=== PATIENT | female | born 1995 | race Caucasian/White ===

== ENCOUNTER 2017-01-15 23:57 | Emergency (ER) | payer SELFPAY ==
[2017-01-16] MEDS ORDERED: Bacitracin Oint 1 GM U/D Packet TOP ONE (00:05)
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
[2017-01-16 00:31] VITALS: BP 138/79
== END 2017-01-16 00:30 | disposition home or self-care (01) ==
LOC: MW.ED 23:57
DX: T24.102A Burn of first degree of unspecified site of left lower limb, except ankle and foot, initial encounter (principal); T24.101A Burn of first degree of unspecified site of right lower limb, except ankle and foot, initial encounter; F17.210 Nicotine dependence, cigarettes, uncomplicated; Z88.8 Allergy status to other drugs, medicaments and biological substances; Z88.7 Allergy status to serum and vaccine; X08.8XXA Exposure to other specified smoke, fire and flames, initial encounter
CPT/HCPCS: 99283

== ENCOUNTER 2017-04-06 23:10 | Emergency (ER) | payer BC, MEDICAID ==
[2017-04-06] MEDS ORDERED: Acetaminophen/Butalbital/Caffeine 325-50-40 MG Tab PO ONE (23:36)
--- NOTE | 2017-04-06 23:40 | EDM.PDOC ---
ED HPI GENERAL MEDICAL PROBLEM - General Chief Complaint: Neck Problem Stated Complaint: PT HAS BACK PAINS Time Seen by Provider: 04/06/17 23:37 Source of Information: Reports: Patient - History of Present Illness INITIAL COMMENTS - FREE TEXT/NARRATIVE: HISTORY AND PHYSICAL: History of present illness: []Patient presents with history of headache over the last couple of days as well as pain with head movement on the horizontal axis left and right, she states she is under a lot of stress at work at [employer] and desires to stop this employment. She has 4 out of 10 occipital headache nonradiating She denies any injury, on physical exam she has clear spasm I can reproduce symptoms in both left and right trapezius distribution she denies any head injury whiplash type injury no fever nausea vomiting chills sweats no chest pain shortness breath dizziness or palpitation no bowel or urine symptoms Review of systems: As per history of present illness and below otherwise all systems reviewed and negative. Past medical history: As per history of present illness and as reviewed below otherwise noncontributory. Surgical history: As per history of present illness and as reviewed below otherwise noncontributory. Social history: No reported history of drug or alcohol abuse. Family history: As per history of present illness and as reviewed below otherwise noncontributory. Physical exam: HEENT: Atraumatic, normocephalic, pupils reactive, negative for conjunctival pallor or scleral icterus, mucous membranes moist, throat clear, neck supple, nontender, trachea midline. No meningeal sign Lungs: Clear to auscultation, breath sounds equal bilaterally, chest nontender. Heart: S1S2, regular, negative for clicks, rubs, or JVD. Abdomen: Soft, nondistended, nontender. Negative for masses or hepatosplenomegaly. Negative for costovertebral tenderness. Pelvis: Stable nontender. Genitourinary: Deferred. Rectal: Deferred. Extremities: Atraumatic, negative for cords or calf pain. Neurovascular unremarkable. Neuro: Awake, alert, oriented. Cranial nerves II through XII unremarkable. Cerebellum unremarkable. Motor and sensory unremarkable throughout. Exam nonfocal. Musculoskeletal again I can reproduce symptoms with palpation of right and left trapezius distribution no meningeal signs Diagnostics: []Clinical Therapeutics: []Fioricet 1 tab now Fioricet 1-2 tabs by mouth every 6 hours when necessary #30 no refill Impression: []Tension headache Muscle spasm right and left trapezius distribution Definitive disposition and diagnosis as appropriate pending reevaluation and review of above. neck Pain Score (Numeric/FACES): 8 - Related Data Allergies Allergy/AdvReac Type Severity Reaction Status Date / Time Influenza Virus Vaccines Allergy Cannot Verified 04/06/17 23:25 Remember trazodone Allergy Cardiac Verified 04/06/17 23:25 Arrest Home Meds: Home Meds Albuterol [Ventolin HFA] 2 puff INH Q4H PRN 04/29/15 [History] Past Medical History - Past Health History Medical/Surgical History: Denies Medical/Surgical History Cardiovascular History: Reports: Other (See Below) Other Cardiovascular History: patient had cardiac arrest from trazodone; heart murmur Respiratory History: Reports: Asthma PERSONNEL MONITOR History: Reports: - Infectious Disease History Infectious Disease History: Reports: None Social & Family History - Family History Family Medical History: Noncontributory - Tobacco Use Smoking Status *Q: Current Every Day Smoker Years of Tobacco use: 5 Packs/Tins Daily: 1 Used Tobacco, but Quit: No Month Tobacco Last Used: February 2014 Second Hand Smoke Exposure: Yes - Alcohol Use Days Per Week of Alcohol Use: 1 Number of Drinks Per Day: 1 Total Drinks Per Week: 1 - Recreational Drug Use Recreational Drug Use: No ED ROS GENERAL - Review of Systems Review Of Systems: ROS reveals no pertinent complaints other than HPI. ED EXAM, GENERAL - Physical Exam Exam: See Below Course - Vital Signs Last Recorded V/S: Last Vital Signs Temp 36.3 C 04/06/17 23:10 Pulse 69 04/06/17 23:10 Resp 18 04/06/17 23:10 BP 131/75 04/06/17 23:10 Pulse Ox 99 04/06/17 23:10 - Orders/Labs/Meds Orders: Active Orders 24 hr Category Date Time Status Acetaminophen/Butalbital/Caff [Fioricet 325-50-40 MG] Med 04/06/17 23:36 Once 1 tab PO ONETIME ONE Departure - Departure Time of Disposition: 23:39 Disposition: Home, Self-Care 01 Condition: Good Clinical Impression: Muscle spasm, Tension headache - Discharge Information Referrals: PCP,None [Primary Care Provider] - Additional Instructions: Medication as prescribed Return if symptoms persist or worsen Follow-up with primary care in 2 weeks sooner as needed The following information is given to patients seen in the emergency department who are being discharged to home. This information is to outline your options for follow-up care. We provide all patients seen in our emergency department with a follow-up referral. The need for follow-up, as well as the timing and circumstances, are variable depending upon the specifics of your emergency department visit. If you don't have a primary care physician on staff, we will provide you with a referral. We always advise you to contact your personal physician following an emergency department visit to inform them of the circumstance of the visit and for follow-up with them and/or the need for any referrals to a consulting specialist. The emergency department will also refer you to a specialist when appropriate. This referral assures that you have the opportunity for follow-up care with a specialist. All of these measure are taken in an effort to provide you with optimal care, which includes your follow-up. Under all circumstances we always encourage you to contact your private physician who remains a resource for coordinating your care. When calling for follow-up care, please make the office aware that this follow-up is from your recent emergency room visit. If for any reason you are refused follow-up, please contact the [facility] emergency department at and asked to speak to the emergency department charge nurse. - My Orders Last 24 Hours: My Active Orders 04/06/17 23:36 Acetaminophen/Butalbital/Caff [Fioricet 325-50-40 MG] 1 tab PO ONETIME ONE - Assessment/Plan Last 24 Hours: My Active Orders 04/06/17 23:36 Acetaminophen/Butalbital/Caff [Fioricet 325-50-40 MG] 1 tab PO ONETIME ONE
[2017-04-07 00:25] VITALS: BP 129/80
== END 2017-04-07 00:10 | disposition home or self-care (01) ==
LOC: MW.ED 23:10
DX: G44.209 Tension-type headache, unspecified, not intractable (principal); M62.838 Other muscle spasm; F17.210 Nicotine dependence, cigarettes, uncomplicated; Z88.8 Allergy status to other drugs, medicaments and biological substances
CPT/HCPCS: 99283; A9270; 99282

== ENCOUNTER 2018-01-05 21:11 | Emergency (ER) | payer OTHER, BC ==
[2018-01-05 22:12] VITALS: BP 131/80
[2018-01-05] MEDS ORDERED: traMADol 50 MG Tab PO ONE (22:38)
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
== END 2018-01-06 00:24 | disposition home or self-care (01) ==
LOC: MW.ED 21:11 → MERGE 21:11 → MW.ED 01-06 00:24
DX: S80.02XA Contusion of left knee, initial encounter (principal); S60.212A Contusion of left wrist, initial encounter; S00.83XA Contusion of other part of head, initial encounter; W19.XXXA Unspecified fall, initial encounter; F17.210 Nicotine dependence, cigarettes, uncomplicated; Z79.899 Other long term (current) drug therapy
CPT/HCPCS: 73562; 99283; A9270

== ENCOUNTER 2018-09-19 18:57 | Emergency (ER) | payer BC, OTHER ==
--- NOTE | 2018-09-19 19:06 | EDM.PDOC ---
ED HPI GENERAL MEDICAL PROBLEM - General Chief Complaint: Upper Extremity Injury/Pain Stated Complaint: LEFT WRIST PAIN Time Seen by Provider: 09/19/18 19:04 Source of Information: Reports: Patient History Limitations: Reports: No Limitations - History of Present Illness INITIAL COMMENTS - FREE TEXT/NARRATIVE: HISTORY AND PHYSICAL: History of present illness: Patient is a 23-year-old female who presents to the emergency room today with complaints of left wrist pain. She states she until today. Today she was at work all day and very busy; left wrist became painful. Pain is increased with grasping and flexion/extension of the wrist. She denies any previous injury/ surgery of the affected extremity. Denies any numbness or tingling of the affected extremity. She denies any fever, chills, chest pain, shortness of breath or cough. Denies any abdominal pain, nausea, vomiting, diarrhea or constipation. She has been eating and drinking appropriately. Other than the localized area of pain to the left wrist has no other complaints or concerns today. Review of systems: As per history of present illness and below otherwise all systems reviewed and negative. Past medical history: As per history of present illness and as reviewed below otherwise noncontributory. Surgical history: As per history of present illness and as reviewed below otherwise noncontributory. Social history: See social history for further information Family history: As per history of present illness and as reviewed below otherwise noncontributory. Physical exam: General: Well-developed and well-nourished 23-year-old female. Alert and oriented. Nontoxic appearing and in no acute distress. HEENT: Atraumatic, normocephalic, pupils equal and reactive bilaterally, negative for conjunctival pallor or scleral icterus, mucous membranes moist, TMs normal bilaterally, throat clear, neck supple, nontender, trachea midline. No drooling or trismus noted. No meningeal signs. No hot potato voice noted. Lungs: Clear to auscultation, breath sounds equal bilaterally, chest nontender. Heart: S1S2, regular rate and rhythm without overt murmur Abdomen: Soft, nondistended, nontender. Negative for masses or hepatosplenomegaly. Negative for costovertebral tenderness. Pelvis: Stable nontender. Genitourinary: Deferred. Rectal: Deferred. Skin: Intact, warm, dry. No lesions or rashes noted. Extremities: Pain with palpation to the distal radial/ulnar aspect. Strong radial pulse. Capillary refill less than 3 seconds. Skin is intact, warm, dry. No soft tissue swelling noted. Patient is able to grasp, strong and equal bilaterally. Good flexion and extension although this does cause increased pain. Neurovascular unremarkable. Neuro: Awake, alert, oriented. Cranial nerves II through XII unremarkable. Cerebellum unremarkable. Motor and sensory unremarkable throughout. Exam nonfocal. Notes: Patient is agreeable for an x-ray at this time. X-ray shows no acute findings. We'll place her in a cockup wrist splint. Supportive care measures were reviewed and discussed. Voices understanding and is agreeable to plan of care. Denies any further questions or concerns at this time. Diagnostics: X-ray Therapeutics: Wrist splint Prescription: Diclofenac (#15) Impression: Left wrist injury Plan: 1. Rest, ice, elevate the extremity as able. Please use the splint for comfort. 2. Tylenol and/or ibuprofen as needed for pain management. 3. Please follow-up with the orthopedic provider and/or your primary care provider in the next 1-2 days. Return to the ED as needed and as discussed Definitive disposition and diagnosis as appropriate pending reevaluation and review of above. Duration: Day(s): Left Arm Pain Score (Numeric/FACES): 10 - Related Data Allergies Allergy/AdvReac Type Severity Reaction Status Date / Time Influenza Virus Vaccines Allergy Cannot Verified 09/19/18 19:16 Remember Home Meds: Home Meds lamoTRIgine [Lamictal] 500 mg PO DAILY 05/05/18 [History] Diclofenac Sodium [Voltaren] 50 mg PO BID PRN #15 tab.ec 09/19/18 [Rx] [place] Carbonate 600 mg PO BID 09/19/18 [History] hydrOXYzine HCl [Atarax] 50 mg PO DAILY 09/19/18 [History] Past Medical History - Past Health History Medical/Surgical History: Denies Medical/Surgical History Cardiovascular History: Reports: Other (See Below) Other Cardiovascular History: 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 ED EXAM, GENERAL - Physical Exam Exam: See Below (See dictation) Course - Vital Signs Last Recorded V/S: Last Vital Signs Temp 97.9 F 09/19/18 19:13 Pulse 104 H 09/19/18 19:13 Resp 18 09/19/18 19:13 BP 140/81 09/19/18 19:13 Pulse Ox 99 09/19/18 19:13 - Orders/Labs/Meds Orders: Active Orders 24 hr Category Date Time Status DME for Discharge [COMM] Stat Oth 09/19/18 19:25 Ordered Meds: Medications Discontinued Medications Generic Name Dose Route Start Last Admin Trade Name Freq PRN Reason Stop Dose Admin Ketorolac Tromethamine 10 mg 09/19/18 19:30 09/19/18 20:02 Toradol PO 09/19/18 19:31 10 mg ONETIME ONE Administration Departure - Departure Time of Disposition: 20:15 Disposition: Home, Self-Care 01 Clinical Impression: Left wrist injury Qualifiers: Encounter type: initial encounter Qualified Code(s): S69.92XA - Unspecified injury of left wrist, hand and finger(s), initial encounter - Discharge Information Prescriptions: Diclofenac Sodium [Voltaren] 50 mg PO BID PRN #15 tab.ec PRN Reason: Pain Referrals: PCP,None [Primary Care Provider] - Forms: ED Department Discharge Additional Instructions: The following information is given to patients seen in the emergency department who are being discharged to home. This information is to outline your options for follow-up care. We provide all patients seen in our emergency department with a follow-up referral. The need for follow-up, as well as the timing and circumstances, are variable depending upon the specifics of your emergency department visit. If you don't have a primary care physician on staff, we will provide you with a referral. We always advise you to contact your personal physician following an emergency department visit to inform them of the circumstance of the visit and for follow-up with them and/or the need for any referrals to a consulting specialist. The emergency department will also refer you to a specialist when appropriate. This referral assures that you have the opportunity for follow-up care with a specialist. All of these measure are taken in an effort to provide you with optimal care, which includes your follow-up. Under all circumstances we always encourage you to contact your private physician who remains a resource for coordinating your care. When calling for follow-up care, please make the office aware that this follow-up is from your recent emergency room visit. If for any reason you are refused follow-up, please contact the [facility] Emergency Department at and asked to speak to the emergency department charge nurse. [facility] [address] [place] [id number] [address] [facility] - [facility] Professional Building [address] [place] [address], [address] [place] [address] 1. Rest, ice, elevate the extremity as able. Please use the splint for comfort. 2. Tylenol and/or ibuprofen as needed for pain management. 3. Please follow-up with the orthopedic provider and/or your primary care provider in the next 1-2 days. Return to the ED as needed and as discussed - My Orders Last 24 Hours: My Active Orders 09/19/18 19:25 DME for Discharge [COMM] Stat - Assessment/Plan Last 24 Hours: My Active Orders 09/19/18 19:25 DME for Discharge [COMM] Stat
[2018-09-19] MEDS ORDERED: Ketorolac 10 MG Tab PO ONE (19:30)
--- NOTE | 2018-09-19 20:03 | CR ---
INDICATION: Wrist pain TECHNIQUE: Wrist radiograph 3 views left COMPARISON: None FINDINGS: Bone: No acute fractures or aggressive bone lesions are identified. Joint: The radiocarpal, carpal, and carpometacarpal joints are unremarkable in appearance. Soft tissue: Unremarkable. No radiopaque foreign bodies are seen. IMPRESSION: 1. No acute osseous injuries or abnormalities are noted. Dictated by: Rob Mathew MD @ 09/19/2018 20:01:43 (Electronically Signed)
[2018-09-19 20:28] VITALS: BP 121/70
== END 2018-09-19 20:25 | disposition home or self-care (01) ==
LOC: MW.ED 18:57
DX: S69.92XA Unspecified injury of left wrist, hand and finger(s), initial encounter (principal); X58.XXXA Exposure to other specified factors, initial encounter
CPT/HCPCS: 73110; 99283; A9270

== ENCOUNTER 2019-06-19 17:56 | Emergency (ER) | payer SELFPAY ==
--- NOTE | 2019-06-19 18:19 | EDM.PDOC ---
ED HPI GENERAL MEDICAL PROBLEM - General Chief Complaint: Respiratory Problem Stated Complaint: COUGH Time Seen by Provider: 06/19/19 17:57 Source of Information: Reports: Patient History Limitations: Reports: No Limitations - History of Present Illness INITIAL COMMENTS - FREE TEXT/NARRATIVE: HISTORY AND PHYSICAL: History of present illness: Patient is a 23-year-old female who presents to the emergency room today with complaints of dry nonproductive cough 2 weeks. She states she has a history of asthma and does have a Advair Diskus and albuterol rescue inhaler which she has been using routinely. Patient reports she has 5-6 weeks . Has not had any vaginal bleeding, discharge or OB-related concerns. She does have an initial OBSTETRICIAN GYNECOLOGIST appointment in the next few weeks with Renee Salazar. Patient denies any fever, chills, headache, change in vision, syncope or near syncope. Denies any chest pain, back pain, or shortness of breath. Denies any abdominal pain, nausea, vomiting, diarrhea, constipation or dysuria. Has not noted any blood in urine or stool. Patient has been eating and drinking appropriately. Review of systems: As per history of present illness and below otherwise all systems reviewed and negative. Past medical history: As per history of present illness and as reviewed below otherwise noncontributory. Surgical history: As per history of present illness and as reviewed below otherwise noncontributory. Social history: See social history for further information Family history: As per history of present illness and as reviewed below otherwise noncontributory. Physical exam: General: Well-developed and well-nourished 33-year-old female. Alert and oriented. Nontoxic appearing and in no acute distress. HEENT: Atraumatic, normocephalic, pupils equal and reactive bilaterally, negative for conjunctival pallor or scleral icterus, mucous membranes moist, TMs normal bilaterally, throat clear, neck supple, nontender, trachea midline. No drooling or trismus noted. No meningeal signs. No hot potato voice noted. Lungs: Slightly diminished bases bilaterally otherwise clear to auscultation, breath sounds equal bilaterally, chest nontender. Heart: S1S2, regular rate and rhythm without overt murmur Abdomen: Soft, nondistended, nontender. Negative for masses or hepatosplenomegaly. Negative for costovertebral tenderness. Skin: Intact, warm, dry. No lesions or rashes noted. Extremities: Atraumatic, moves all extremities per self without difficulty or deficits, negative for cords or calf pain. Neurovascular unremarkable. Neuro: Awake, alert, oriented. Cranial nerves II through XII unremarkable. Cerebellum unremarkable. Motor and sensory unremarkable throughout. Exam nonfocal. Notes: Influenza screening is negative. Due to longevity of symptoms I will treat with antibiotic. Encouraged her to follow up with her OBSTETRICIAN GYNECOLOGIST. Supportive care measures were reviewed and discussed. Voices understanding and is agreeable to plan of care. Denies any further questions or concerns at this time. Diagnostics: Influenza Therapeutics: None Prescription: Zpak Impression: Bronchitis Plan: 1. Please use Tylenol and/or Ibuprofen as needed for pain and fever management. 2. Get plenty of Rest. Encourage fluids to prevent dehydration. 3. Please follow up with your primary care provider. Return to the ED as needed as discussed. Definitive disposition and diagnosis as appropriate pending reevaluation and review of above. - Related Data Allergies Allergy/AdvReac Type Severity Reaction Status Date / Time Influenza Virus Vaccines Allergy Cannot Verified 06/19/19 18:10 Remember Home Meds: Home Meds . 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 ED EXAM, GENERAL - Physical Exam Exam: See Below (See dictation) Course - Vital Signs Last Recorded V/S: Last Vital Signs Temp 97.7 F 06/19/19 18:09 Pulse 80 06/19/19 18:09 Resp 18 06/19/19 18:09 BP 147/84 H 06/19/19 18:09 Pulse Ox 98 06/19/19 18:09 Departure - Departure Time of Disposition: 18:44 Disposition: Home, Self-Care 01 Clinical Impression: Bronchitis - Discharge Information Instructions: Acute Bronchitis, Adult, [id number] Referrals: Katie Bynum NP [Primary Care Provider] - Forms: ED Department Discharge Additional Instructions: The following information is given to patients seen in the emergency department who are being discharged to home. This information is to outline your options for follow-up care. We provide all patients seen in our emergency department with a follow-up referral. The need for follow-up, as well as the timing and circumstances, are variable depending upon the specifics of your emergency department visit. If you don't have a primary care physician on staff, we will provide you with a referral. We always advise you to contact your personal physician following an emergency department visit to inform them of the circumstance of the visit and for follow-up with them and/or the need for any referrals to a consulting specialist. The emergency department will also refer you to a specialist when appropriate. This referral assures that you have the opportunity for follow-up care with a specialist. All of these measure are taken in an effort to provide you with optimal care, which includes your follow-up. Under all circumstances we always encourage you to contact your private physician who remains a resource for coordinating your care. When calling for follow-up care, please make the office aware that this follow-up is from your recent emergency room visit. If for any reason you are refused follow-up, please contact the [facility] Emergency Department at and asked to speak to the emergency department charge nurse. [facility] [address] [place] [id number] [address] 1. Please use Tylenol as needed for pain and fever management. 2. Get plenty of Rest. Encourage fluids to prevent dehydration. Continue using your albuterol inhaler as needed. 3. Please follow up with your primary care provider. Return to the ED as needed as discussed.
[2019-06-19 18:56] VITALS: BP 150/75; PULSE 89
== END 2019-06-19 18:53 | disposition home or self-care (01) ==
LOC: MW.ED 17:56
DX: O99.511 Diseases of the respiratory system complicating pregnancy, first trimester (principal); J40 Bronchitis, not specified as acute or chronic; O99.331 Smoking (tobacco) complicating pregnancy, first trimester; F17.210 Nicotine dependence, cigarettes, uncomplicated; Z88.7 Allergy status to serum and vaccine; Z3A.01 Less than 8 weeks gestation of pregnancy
CPT/HCPCS: 87804; 99283

== ENCOUNTER 2019-06-23 17:54 | Emergency (ER) | payer SELFPAY ==
[2019-06-23 18:17] VITALS: BP 131/63; PULSE 82
[2019-06-23] MEDS: Sodium Chloride 0.9% 1,000 ML IV ONE (19:00)
[2019-06-23] MEDS: Ondansetron 4 MG/2 ML SDV IVPUSH ONE (19:00)
[2019-06-23 19:38] LABS: BLOOD UREA NITROGEN,BUN 9 mg/dL (7.0-18.0); CARBON DIOXIDE,CO2 24.5 mmol/L (21.0-32.0); CHLORIDE,CL 103 mmol/L (98-107); GLUCOSE RANDOM 81 mg/dL (74-106); LIPASE 120 U/L (73-393); POTASSIUM,K 3.3 mmol/L (3.5-5.1); SODIUM,NA 140 mmol/L (136-145)
--- NOTE | 2019-06-23 19:57 | EDM.PDOC ---
ED HPI GENERAL MEDICAL PROBLEM - General Chief Complaint: Abdominal Pain Stated Complaint: CHEST DISCOMFOT, ABD PAIN Time Seen by Provider: 06/23/19 18:13 Source of Information: Reports: Patient History Limitations: Reports: No Limitations - History of Present Illness INITIAL COMMENTS - FREE TEXT/NARRATIVE: Presents reporting a 2 hour history of nausea but no vomiting. Has had diarrhea for 1 week and epigastric pain. Denies urinary urgency, frequency or burning. Denies vaginal itch discharge or bleeding. Last menstrual period 05/03 and is sexually active. She has been on azithromycin for bronchitis for the last few days. She vapes nicotine. Otherwise healthy without chronic medical problems. 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 ED EXAM, GI/ABD - Physical Exam Exam: See Below Exam Limited By: No Limitations General Appearance: Alert, No Apparent Distress, Other (visiting, laughing and playing on her phone) Ears: Normal External Exam, Normal TMs Nose: Normal Inspection Throat/Mouth: Normal Inspection Head: Atraumatic, Normocephalic Neck: Normal Inspection Respiratory/Chest: No Respiratory Distress, Lungs Clear, Normal Breath Sounds Cardiovascular: Normal Peripheral Pulses, Regular Rate, Rhythm, No Murmur GI/Abdominal Exam: Normal Bowel Sounds, Soft, No Distention, Other (mild epigastric tenderness) Extremities: Normal Inspection Neurological: Alert, Oriented Psychiatric: Normal Affect, Normal Mood Skin Exam: Warm, Dry, Intact, Normal Color, No Rash Lymphatic: No Adenopathy Course - Vital Signs Last Recorded V/S: Last Vital Signs Temp 36.6 C 06/23/19 18:14 Pulse 82 06/23/19 18:14 Resp 16 06/23/19 18:14 BP 131/63 06/23/19 18:14 Pulse Ox 97 06/23/19 18:14 - Orders/Labs/Meds Orders: Active Orders 24 hr Category Date Time Status HCG QUANTITATIVE [CHEM] Stat Lab 06/23/19 18:28 Ordered Labs: Laboratory Tests 06/23/19 06/23/19 06/23/19 Range/Units 19:09 19:09 19:10 WBC 9.70 (4.0-11.0) K/uL RBC 4.62 (4.30-5.90) M/uL Hgb 13.1 (12.0-16.0) g/dL Hct 37.5 (36.0-46.0) % MCV 81.2 (80.0-98.0) fL MCH 28.4 (27.0-32.0) pg MCHC 34.9 (31.0-37.0) g/dL RDW Std Deviation 36.9 (28.0-62.0) fl RDW Coeff of Davon 13 (11.0-15.0) % Plt Count 310 (150-400) K/uL MPV 9.10 (7.40-12.00) fL Neut % (Auto) 56.6 (48.0-80.0) % Lymph % (Auto) 34.1 (16.0-40.0) % [place] % (Auto) 7.9 (0.0-15.0) % Eos % (Auto) 1.2 (0.0-7.0) % Baso % (Auto) 0.2 (0.0-1.5) % Neut # (Auto) 5.5 (1.4-5.7) K/uL Lymph # (Auto) 3.3 H (0.6-2.4) K/uL [place] # (Auto) 0.8 (0.0-0.8) K/uL Eos # (Auto) 0.1 (0.0-0.7) K/uL Baso # (Auto) 0.0 (0.0-0.1) K/uL Nucleated RBC % 0.0 /100WBC Nucleated RBCs # 0 K/uL Sodium 140 (136-145) mmol/L Potassium 3.3 L (3.5-5.1) mmol/L Chloride 103 (98-107) mmol/L Carbon Dioxide 24.5 (21.0-32.0) mmol/L BUN 9 (7.0-18.0) mg/dL Creatinine 0.6 (0.6-1.0) mg/dL Est Cr Clr Drug Dosing 128.98 mL/min Estimated GFR (MDRD) > 60.0 ml/min Glucose 81 (74-106) mg/dL Calcium 9.3 (8.5-10.1) mg/dL Total Bilirubin 0.7 (0.2-1.0) mg/dL AST 11 L (15-37) IU/L ALT 24 (14-63) IU/L Alkaline Phosphatase 63 (46-116) U/L Total Protein 7.5 (6.4-8.2) g/dL Albumin 4.0 (3.4-5.0) g/dL Globulin 3.5 (2.6-4.0) g/dL Albumin/Globulin Ratio 1.1 (0.9-1.6) Lipase 120 (73-393) U/L Urine Color YELLOW Urine Appearance CLEAR Urine pH 5.0 (5.0-8.0) Ur Specific [place] >= 1.030 (1.001-1.035) Urine Protein NEGATIVE (NEGATIVE) mg/dL Urine Glucose (UA) NEGATIVE (NEGATIVE) mg/dL Urine Ketones TRACE H (NEGATIVE) mg/dL Urine Occult Blood NEGATIVE (NEGATIVE) Urine Nitrite NEGATIVE (NEGATIVE) Urine Bilirubin NEGATIVE (NEGATIVE) Urine Urobilinogen 0.2 (<2.0) EU/dL Ur Leukocyte Esterase NEGATIVE (NEGATIVE) Urine RBC 0-2 (0-2/HPF) Urine WBC 0-2 (0-5/HPF) Ur Epithelial Cells MODERATE (NONE-FEW) Urine Bacteria FEW (NEGATIVE) Urine Mucus MODERATE (NONE-MOD) Meds: Medications Discontinued Medications Generic Name Dose Route Start Last Admin Trade Name Freq PRN Reason Stop Dose Admin Sodium Chloride 1,000 mls @ 999 mls/hr 06/23/19 18:26 06/23/19 19:00 Normal Saline IV 06/23/19 19:26 Not Given BOLUS ONE Ondansetron HCl 4 mg 06/23/19 18:26 06/23/19 19:00 Zofran IVPUSH 06/23/19 18:27 Not Given ONETIME ONE Departure - Departure Time of Disposition: 19:55 Disposition: Home, Self-Care 01 Condition: Good Clinical Impression: Diarrhea Qualifiers: Diarrhea type: unspecified type Qualified Code(s): R19.7 - Diarrhea, unspecified - Discharge Information Referrals: Katie Bynum, [employer] [Primary Care Provider] - Additional Instructions: 1. Drink plenty of fluids and rest 2. Return promptly for vomiting and not keeping down oral fluids, fevers, worsening or non-improving epigastric pain. 3. BRAT (bananas, rice, applesauce, toast) advance as tolerated. Sepsis Event Note - Evaluation Sepsis Screening Result: No Definite Risk - Focused Exam Vital Signs: Vital Signs Temp Pulse Resp BP Pulse Ox 06/23/19 18:14 36.6 C 82 16 131/63 97 Date Exam was Performed: 06/23/19 Time Exam was Performed: 19:51 - My Orders Last 24 Hours: My Active Orders 06/23/19 18:28 HCG QUANTITATIVE [CHEM] Stat - Assessment/Plan Last 24 Hours: My Active Orders 06/23/19 18:28 HCG QUANTITATIVE [CHEM] Stat
== END 2019-06-23 20:14 | disposition home or self-care (01) ==
LOC: MW.ED 17:54
DX: O99.89 Other specified diseases and conditions complicating pregnancy, childbirth and the puerperium (principal); R19.7 Diarrhea, unspecified; Z88.7 Allergy status to serum and vaccine
CPT/HCPCS: 36415; 80053; 81001; 83690; 84702; 85025; 99283; 99284

== ENCOUNTER 2019-08-04 10:27 | Day surgery (SDC) | payer BC, OTHER ==
[2019-08-04] MEDS ORDERED: Lactated Ringers 1,000 ML IV SCH (10:45)
--- NOTE | 2019-08-04 11:38 | PCM.PREANE ---
Preanesthetic Assessment - Anesthesia/Transfusion/Family Hx Anesthesia History: No Prior Anesthesia Family History of Anesthesia Reaction: No Transfusion History: No Prior Transfusion(s) Intubation History: Unknown - Review of Systems General: No Symptoms Pulmonary: No Symptoms Cardiovascular: No Symptoms Gastrointestinal: No Symptoms Neurological: No Symptoms Other: Reports: None - Physical Assessment NPO Status Date: 08/03/19 NPO Status Time: 23:40 Vital Signs: Last Vital Signs Temp 36.3 C 08/04/19 10:35 Pulse 79 08/04/19 10:35 Resp 18 08/04/19 10:35 BP 118/78 08/04/19 10:35 Pulse Ox 100 08/04/19 10:35 Height: 5 ft 1 in Weight: 66.678 kg ASA Class: 2 Mental Status: Alert & Oriented x3 Airway Class: Mallampati = 1 Dentition: Reports: Normal Dentition Thyro-Mental Finger Breadths: 3 Mouth Opening Finger Breadths: 3 ROM/Head Extension: Full Lungs: Clear to Auscultation, Normal Respiratory Effort Cardiovascular: Regular Rate, Regular Rhythm - Allergies Allergies/Adverse Reactions: Allergies Allergy/AdvReac Type Severity Reaction Status Date / Time No Known Allergies Allergy Verified 08/03/19 11:49 - Blood Blood Available: No - Anesthesia Plan Pre-Op Medication Ordered: None - Acknowledgements Anesthesia Type Planned: General Anesthesia Pt an Appropriate Candidate for the Planned Anesthesia: Yes Alternatives and Risks of Anesthesia Discussed w Pt/Guardian: Yes Pt/Guardian Understands and Agrees with Anesthesia Plan: Yes PreAnesthesia Questionnaire - Past Health History Medical/Surgical History: Denies Medical/Surgical History HEENT History: Reports: Other (See Below) Other HEENT History: wears glasses Cardiovascular History: Reports: Heart Murmur, Other (See Below) Other Cardiovascular History: states heart murmur Respiratory History: Reports: Asthma (mild, inhalers prn) Gastrointestinal History: Reports: None Genitourinary History: Reports: None [employer] History: Reports: , Spontaneous (incomplete) Musculoskeletal History: Reports: None Neurological History: Reports: None Psychiatric History: Reports: Anxiety, Depression, PTSD, Suicide Attempt Endocrine/Metabolic History: Reports: None Hematologic History: Reports: None Immunologic History: Reports: Other (See Below) Other Immunologic History: states MRSA in the past, states has had negative testings x3 Oncologic (Cancer) History: Reports: None Dermatologic History: Reports: None - Infectious Disease History Infectious Disease History: Reports: Chicken Pox - Past Surgical History Head Surgeries/Procedures: Reports: None HEENT Surgical History: Reports: None Cardiovascular Surgical History: Reports: None Respiratory Surgical History: Reports: None GI Surgical History: Reports: None Female Surgical History: Reports: None Endocrine Surgical History: Reports: None Neurological Surgical History: Reports: None Musculoskeletal Surgical History: Reports: None Oncologic Surgical History: Reports: None Dermatological Surgical History: Reports: None - SUBSTANCE USE Smoking Status *Q: Current Every Day Smoker (4-5 cigarettes per day) Tobacco Use Within Last Twelve Months: Cigarettes - HOME MEDS Home Medications: Home Meds Albuterol Sulfate 1 unit NEB ASDIRECTED PRN 08/03/19 [History] Albuterol Sulfate [Proair Hfa] 1 - 2 puff INH ASDIRECTED PRN 08/03/19 [History] - CURRENT (IN HOUSE) MEDS Current Meds: Current Medications Lactated Ringer's (Ringers, Lactated) 1,000 mls @ 100 mls/hr IV ASDIRECTED YA Last Admin: 08/04/19 10:59 Dose: 100 mls/hr
[2019-08-04] MEDS ORDERED: Propofol 200 MG/20 ML SDV ONE (12:04)
[2019-08-04] MEDS ORDERED: Midazolam 1 MG/ML 2 ML SDV ONE (12:04)
[2019-08-04] MEDS ORDERED: fentaNYL 250 MCG/5 ML SDV ONE (12:04)
[2019-08-04] MEDS ORDERED: Dexamethasone 4 MG/ML 5 ML MDV ONE (12:53)
[2019-08-04] MEDS ORDERED: Ondansetron 4 MG/2 ML SDV ONE (12:53)
[2019-08-04] MEDS ORDERED: fentaNYL 100 MCG/2 ML SDV IVPUSH PRN (12:59)
--- NOTE | 2019-08-04 14:46 | PCM.OPNOTE ---
- General Post-Op/Procedure Note Date of Surgery/Procedure: 08/04/19 Operative Procedure(s): D&E Pre Op Diagnosis: Blighted Ovum Post-Op Diagnosis: Same Anesthesia Technique: General LMA Primary Surgeon: Srinivasa Trujillo EBL in mLs: 150 Complications: None Condition: Good
--- NOTE | 2019-08-04 14:47 | PCM.DCSUM1 ---
Discharge Summary - Hospital Course Diagnosis: Stroke: No - Discharge Data Discharge Date: 08/04/19 Discharge Disposition: Home, Self-Care 01 Condition: Good - Referral to Home Health Primary Care Physician: Katie Bynum NP - Patient Summary/Data Operative Procedure(s) Performed: D&E - Patient Instructions Diet: Usual Diet as Tolerated Activity: As Tolerated Driving: Do Not Drive Showering/Bathing: May Shower - Discharge Plan Home Medications: Home Meds Albuterol Sulfate 1 unit NEB ASDIRECTED PRN 08/03/19 [History] Albuterol Sulfate [Proair Hfa] 1 - 2 puff INH ASDIRECTED PRN 08/03/19 [History] - Discharge Summary/Plan Comment DC Time >30 min.: Yes - General Info Date of Service: 08/04/19 Functional Status: Reports: Pain Controlled - Review of Systems General: Reports: No Symptoms HEENT: Reports: No Symptoms Pulmonary: Reports: No Symptoms Cardiovascular: Reports: No Symptoms Gastrointestinal: Reports: No Symptoms Genitourinary: Reports: No Symptoms Musculoskeletal: Reports: No Symptoms Skin: Reports: No Symptoms Neurological: Reports: No Symptoms Psychiatric: Reports: No Symptoms - Patient Data Vitals - Most Recent: Last Vital Signs Temp 36.3 C 08/04/19 10:35 Pulse 79 08/04/19 10:35 Resp 18 08/04/19 10:35 BP 118/78 08/04/19 10:35 Pulse Ox 100 08/04/19 10:35 Weight - Most Recent: 66.678 kg Med Orders - Current: Current Medications Fentanyl (Sublimaze) 50 mcg IVPUSH Q5M PRN PRN Reason: Pain (severe 7-10) Stop: 08/04/19 15:30 Lactated Ringer's (Ringers, Lactated) 1,000 mls @ 100 mls/hr IV ASDIRECTED YA Last Admin: 08/04/19 10:59 Dose: 100 mls/hr Discontinued Medications Dexamethasone (Dexamethasone) Confirm Administered Dose 20 mg .ROUTE .STK-MED ONE Stop: 08/04/19 12:54 Fentanyl (Sublimaze) Confirm Administered Dose 250 mcg .ROUTE .STK-MED ONE Stop: 08/04/19 12:05 Lidocaine HCl (Xylocaine-Mpf 1%) Confirm Administered Dose 5 ml .ROUTE .STK-MED ONE Stop: 08/04/19 12:54 Midazolam HCl (Versed 1 Mg/Ml) Confirm Administered Dose 2 mg .ROUTE .STK-MED ONE Stop: 08/04/19 12:05 Ondansetron HCl (Zofran) Confirm Administered Dose 4 mg .ROUTE .STK-MED ONE Stop: 08/04/19 12:54 Propofol (Diprivan 20 Ml) Confirm Administered Dose 200 mg .ROUTE .STK-MED ONE Stop: 08/04/19 12:05 - Exam General: Reports: Alert, Oriented HEENT: Reports: Pupils Equal, Pupils Reactive, EOMI, Mucous Membr. Moist/[place] Neck: Reports: Supple Lungs: Reports: Clear to Auscultation, Normal Respiratory Effort Cardiovascular: Reports: Regular Rate, Regular Rhythm GI/Abdominal Exam: Normal Bowel Sounds, Soft, Non-Tender, No Organomegaly, No Distention, No Abnormal Bruit, No Mass, Pelvis Stable (Female) Exam: Normal External Exam, Normal Speculum Exam, Normal Bimanual Exam Rectal (Female) Exam: Normal Exam, Normal Rectal Tone Back Exam: Reports: Normal Inspection, Full Range of Motion Extremities: Normal Inspection, Normal Range of Motion, Non-Tender, No Pedal Edema, Normal Capillary Refill Skin: Reports: Warm, Dry, Intact Wound/Incisions: Reports: Healing Well Neurological: Reports: No New Focal Deficit Psy/Mental Status: Reports: Alert, Normal Affect, Normal Mood
[2019-08-04] MEDS ORDERED: Glycopyrrolate 0.2 MG/ML SDV ONE (14:48)
[2019-08-04 15:19] VITALS: BP 113/55; PULSE 76
--- NOTE | 2019-08-04 15:24 | PCM.POSTAN ---
POST ANESTHESIA ASSESSMENT - MENTAL STATUS Mental Status: Alert, Oriented - VITAL SIGNS Vital Signs: Last Vital Signs Temp 36.5 C 08/04/19 15:15 Pulse 76 08/04/19 15:15 Resp 16 08/04/19 15:15 BP 113/55 L 08/04/19 15:15 Pulse Ox 100 08/04/19 15:15 - RESPIRATORY Respiratory Status: Respiratory Rate WNL, Airway Patent, O2 Saturation Stable - CARDIOVASCULAR CV Status: Pulse Rate WNL, Blood Pressure Stable - GASTROINTESTINAL GI Status: No Symptoms - PAIN Pain Score: 0 - POST OP HYDRATION Hydration Status: Adequate & Stable - OBSERVATIONS Free Text/Narrative:: no anesthesia problems
--- NOTE | 2019-08-04 16:02 | PCM48HPAN ---
Post Anesthesia Note - EVALUATION WITHIN 48HRS OF ANESTHETIC Vital Signs in Normal Range: Yes Patient Participated in Evaluation: Yes Respiratory Function Stable: Yes Airway Patent: Yes Cardiovascular Function Stable: Yes Hydration Status Stable: Yes Pain Control Satisfactory: Yes Nausea and Vomiting Control Satisfactory: Yes Mental Status Recovered: Yes Vital Signs: Last Vital Signs Temp 36.5 C 08/04/19 15:15 Pulse 76 08/04/19 15:15 Resp 16 08/04/19 15:15 BP 113/55 L 08/04/19 15:15 Pulse Ox 100 08/04/19 15:15 - COMMENTS/OBSERVATIONS Free Text/Narrative:: No anesthesia problems
--- NOTE | 2019-08-04 18:37 | OR ---
SURGEON: Srinivasa Trujillo MD DATE OF PROCEDURE: PREOPERATIVE DIAGNOSIS: Blighted ovum. POSTOPERATIVE DIAGNOSIS: Blighted ovum. OPERATION PERFORMED: Dilatation and evacuation. PRIMARY SURGEON: Srinivasa Trujillo MD. COMMUNICATIONS REPRESENTATIVE: OR tech. ANESTHESIA: LMA. ESTIMATED BLOOD LOSS: 150 mL. COMPLICATIONS: None. FINDINGS: Products of conception. INDICATIONS FOR SURGERY: Th patient does have confirmed blighted ovum. She declined conservative and medical approach of treatment. PROCEDURE IN DETAIL: The patient was brought to the OR, properly identified. After adequate level of anesthesia, the patient was placed in lithotomy position, prepped and draped in sterile fashion as usual. Straight catheter was used to empty the bladder and the VCare manipulator placed in the uterus and then the cervix was grabbed with the stabilizers and sequentially dilated to accommodate #8 cannula. The cannula was placed in the endometrial cavity and the cavity was completely and uniformly evacuated from all products of conception. After that, a small curette was applied in the endometrial cavity and gentle curetting was performed to ascertain and make sure that all products of conception were removed. Once we confirmed that, the procedure ended. Instrument and sponge count was correct. The patient tolerated the procedure well, went to recovery room in stable general condition. KAJOSIAHFAR / MARCUSL /[id number]
== END 2019-08-04 15:45 | disposition home or self-care (01) ==
LOC: MW.SDS 10:27
PROVIDERS: ATTEND Obstetrics & Gynecology
DX: O02.0 Blighted ovum and nonhydatidiform mole (principal); J45.909 Unspecified asthma, uncomplicated; F41.9 Anxiety disorder, unspecified; F32.9 Major depressive disorder, single episode, unspecified; F17.210 Nicotine dependence, cigarettes, uncomplicated; Z79.51 Long term (current) use of inhaled steroids
CPT/HCPCS: 59812; J1100; J2001; J2250; J2405; J2704; J3010; J3490; J7120; 01965

== ENCOUNTER 2019-08-16 19:28 | Emergency (ER) | payer BC ==
[2019-08-16 19:48] VITALS: BP 137/92; PULSE 117
--- NOTE | 2019-08-16 21:06 | CT ---
HISTORY: Headache. TECHNIQUE: Noncontrast head CT. COMPARISON: No prior. FINDINGS: There is no acute intracranial hemorrhage or acute ischemic infarct. No mass effect or midline shift. No hydrocephalus. No extra-axial collection or hematoma. No acute loss of soni-white differentiation. Mastoid air cells are clear. Paranasal sinuses are clear. No acute skull fracture. IMPRESSION: No acute intracranial disease. Dictated by Kurtis Valadez MD @ 08/16/2019 9:04:46 PM Please note that all CT scans at this facility use dose modulation, iterative reconstruction, and/or weight-based dosing when appropriate to reduce radiation dose to as low as reasonably achievable. Dictated by: Kurtis Valadez MD @ 08/16/2019 21:04:51 (Electronically Signed)
[2019-08-16 21:14] LABS: BLOOD UREA NITROGEN,BUN 7 mg/dL (7.0-18.0); CARBON DIOXIDE,CO2 26.9 mmol/L (21.0-32.0); CHLORIDE,CL 106 mmol/L (98-107); GLUCOSE RANDOM 101 mg/dL (74-106); POTASSIUM,K 3.8 mmol/L (3.5-5.1); SODIUM,NA 144 mmol/L (136-145)
--- NOTE | 2019-08-16 21:31 | EDM.PDOC ---
ED HPI GENERAL MEDICAL PROBLEM - General Chief Complaint: Headache Stated Complaint: MIGRAINES Time Seen by Provider: 08/16/19 19:49 Source of Information: Reports: Patient History Limitations: Reports: No Limitations - History of Present Illness INITIAL COMMENTS - FREE TEXT/NARRATIVE: Presents reporting a "teetering" headache for the last 48 hours. The patient states she's never had a headache in her life and this one is improving. The headache is accompanied by off-and-on blurred vision, photophobia, phonophobia, nausea and vomiting. Headache seems to increase when she is sitting down. She denies any sinus fullness or upper respiratory symptoms, no injury. Only other complaint is "dripping sweat from my armpits" and "I usually never sweat". She does say that she felt good enough [place] the [place] last night. She had a D& C 2 weeks ago. She states she is on her menses now is sexually active and not on control. She took some ibuprofen and drank a glass of wine without palliation. Neck Pain Score (Numeric/FACES): 7 - Related Data Allergies Allergy/AdvReac Type Severity Reaction Status Date / Time No Known Allergies Allergy Verified 08/16/19 19:42 Home Meds: Home Meds Albuterol Sulfate 1 unit NEB ASDIRECTED PRN 08/03/19 [History] Albuterol Sulfate [Proair Hfa] 1 - 2 puff INH ASDIRECTED PRN 08/03/19 [History] Past Medical History - Past Health History Medical/Surgical History: Denies Medical/Surgical History HEENT History: Reports: Other (See Below) Other HEENT History: wears glasses Cardiovascular History: Reports: Heart Murmur, Other (See Below) Other Cardiovascular History: states heart murmur Respiratory History: Reports: Asthma Gastrointestinal History: Reports: None Genitourinary History: Reports: None 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: , Spontaneous Musculoskeletal History: Reports: None Neurological History: Reports: None Psychiatric History: Reports: Anxiety, Depression, PTSD, Suicide Attempt Endocrine/Metabolic History: Reports: None Hematologic History: Reports: None Immunologic History: Reports: Other (See Below) Other Immunologic History: states MRSA in the past, states has had negative testings x3 Oncologic (Cancer) History: Reports: None Dermatologic History: Reports: None - Infectious Disease History Infectious Disease History: Reports: None - Past Surgical History Head Surgeries/Procedures: Reports: None HEENT Surgical History: Reports: None Cardiovascular Surgical History: Reports: None Respiratory Surgical History: Reports: None GI Surgical History: Reports: None Female Surgical History: Reports: None Endocrine Surgical History: Reports: None Neurological Surgical History: Reports: None Musculoskeletal Surgical History: Reports: None Oncologic Surgical History: Reports: None Dermatological Surgical History: Reports: None Social & Family History - Family History Family Medical History: Noncontributory - Tobacco Use Smoking Status *Q: Current Every Day Smoker Years of Tobacco use: 8 Packs/Tins Daily: 1 - Caffeine Use Caffeine Use: Reports: None - Recreational Drug Use Recreational Drug Use: No ED ROS GENERAL - Review of Systems Review Of Systems: Comprehensive ROS is negative, except as noted in HPI. - Physical Exam Exam: See Below Exam Limited By: No Limitations General Appearance: Alert, No Apparent Distress Eye Exam: Bilateral Eye: EOMI Ears: Normal External Exam, Normal TMs Nose: Normal Inspection Throat/Mouth: Normal Inspection, Normal Oropharynx Head Exam: Atraumatic, Normocephalic Neck: Normal Inspection Respiratory/Chest: No Respiratory Distress, Lungs Clear, Normal Breath Sounds Cardiovascular: Normal Peripheral Pulses, Regular Rate, Rhythm Neuro Exam (Abbreviated): Alert, Oriented, CN II-XII Intact, Normal Cognition, No Motor/Sensory Deficits Extremities: Normal Inspection Psychiatric: Normal Affect, Normal Mood Skin Exam: Warm, Dry, Intact, Normal Color, No Rash Course - Vital Signs Last Recorded V/S: Last Vital Signs Temp 36.4 C 08/16/19 19:42 Pulse 117 H 08/16/19 19:42 Resp 16 08/16/19 19:42 BP 137/92 H 08/16/19 19:42 Pulse Ox 98 08/16/19 19:42 - Orders/Labs/Meds Labs: Laboratory Tests 08/16/19 08/16/19 Range/Units 20:50 20:50 WBC 9.74 (4.0-11.0) K/uL RBC 4.79 (4.30-5.90) M/uL Hgb 13.7 (12.0-16.0) g/dL Hct 39.9 (36.0-46.0) % MCV 83.3 (80.0-98.0) fL MCH 28.6 (27.0-32.0) pg MCHC 34.3 (31.0-37.0) g/dL RDW Std Deviation 38.7 (28.0-62.0) fl RDW Coeff of Davon 13 (11.0-15.0) % Plt Count 330 (150-400) K/uL MPV 9.10 (7.40-12.00) fL Neut % (Auto) 64.6 (48.0-80.0) % Lymph % (Auto) 26.5 (16.0-40.0) % Price % (Auto) 6.8 (0.0-15.0) % Eos % (Auto) 1.8 (0.0-7.0) % Baso % (Auto) 0.3 (0.0-1.5) % Neut # (Auto) 6.3 H (1.4-5.7) K/uL Lymph # (Auto) 2.6 H (0.6-2.4) K/uL Price # (Auto) 0.7 (0.0-0.8) K/uL Eos # (Auto) 0.2 (0.0-0.7) K/uL Baso # (Auto) 0.0 (0.0-0.1) K/uL Nucleated RBC % 0.0 /100WBC Nucleated RBCs # 0 K/uL Sodium 144 (136-145) mmol/L Potassium 3.8 (3.5-5.1) mmol/L Chloride 106 (98-107) mmol/L Carbon Dioxide 26.9 (21.0-32.0) mmol/L BUN 7 (7.0-18.0) mg/dL Creatinine 0.7 (0.6-1.0) mg/dL Est Cr Clr Drug Dosing 87.48 mL/min Estimated GFR (MDRD) > 60.0 ml/min Glucose 101 (74-106) mg/dL Calcium 9.0 (8.5-10.1) mg/dL Total Bilirubin 0.7 (0.2-1.0) mg/dL AST 10 L (15-37) IU/L ALT 20 (14-63) IU/L Alkaline Phosphatase 84 (46-116) U/L Total Protein 7.5 (6.4-8.2) g/dL Albumin 4.1 (3.4-5.0) g/dL Globulin 3.4 (2.6-4.0) g/dL Albumin/Globulin Ratio 1.2 (0.9-1.6) Departure - Departure Time of Disposition: 21:31 Disposition: Home, Self-Care 01 Condition: Good Clinical Impression: Headache Qualifiers: Headache chronicity pattern: acute headache Intractability: not intractable - Discharge Information Referrals: PCP,None [Primary Care Provider] - [facility] [Outside] Additional Instructions: The following information is given to patients seen in the emergency department who are being discharged to home. This information is to outline your options for follow-up care. We provide all patients seen in our emergency department with a follow-up referral. The need for follow-up, as well as the timing and circumstances, are variable depending upon the specifics of your emergency department visit. If you don't have a primary care physician on staff, we will provide you with a referral. We always advise you to contact your personal physician following an emergency department visit to inform them of the circumstance of the visit and for follow-up with them and/or the need for any referrals to a consulting specialist. The emergency department will also refer you to a specialist when appropriate. This referral assures that you have the opportunity for follow-up care with a specialist. All of these measure are taken in an effort to provide you with optimal care, which includes your follow-up. Under all circumstances we always encourage you to contact your private physician who remains a resource for coordinating your care. When calling for follow-up care, please make the office aware that this follow-up is from your recent emergency room visit. If for any reason you are refused follow-up, please contact the [facility] Emergency Department at and asked to speak to the emergency department charge nurse. 1. Excedrine migraine every 6 hours as needed. 2. Follow up in primary care. Sepsis Event Note - Evaluation Sepsis Screening Result: No Definite Risk - Focused Exam Vital Signs: Vital Signs Temp Pulse Resp BP Pulse Ox 08/16/19 19:42 36.4 C 117 H 16 137/92 H 98 Date Exam was Performed: 08/16/19 Time Exam was Performed: 21:26
== END 2019-08-16 21:55 | disposition home or self-care (01) ==
LOC: MW.ED 19:28
DX: R51 Headache (principal); J45.909 Unspecified asthma, uncomplicated; F17.210 Nicotine dependence, cigarettes, uncomplicated
CPT/HCPCS: 36415; 70450; 70450-26; 80053; 85025; 99283; 99284-25

== ENCOUNTER 2020-01-05 16:19 | Emergency (ER) | payer BC ==
--- NOTE | 2020-01-05 17:02 | EDM.PDOC ---
ED HPI GENERAL MEDICAL PROBLEM - General Chief Complaint: General Stated Complaint: SOB, VOMITING Time Seen by Provider: 01/05/20 16:20 Source of Information: Reports: Patient History Limitations: Reports: No Limitations - History of Present Illness INITIAL COMMENTS - FREE TEXT/NARRATIVE: Presents reporting a 3-day history of left upper quadrant pain radiating through to the back. Accompanied by poor appetite and nausea. She has been drinking plenty of water but states she has not eaten in 2 days. Denies dysuria, diarrhea, constipation, or family history of kidney stones. She is sexually active not on control. She does not keep track of her menstrual cycles. Brown semi-formed stool yesterday without blood or mucus black tarry stool. left flank pain/left upper abd Pain Score (Numeric/FACES): 8 - Related Data Allergies Allergy/AdvReac Type Severity Reaction Status Date / Time No Known Allergies Allergy Verified 01/05/20 16:28 Home Meds: Home Meds Albuterol Sulfate 1 unit NEB ASDIRECTED PRN 08/03/19 [History] Albuterol Sulfate [Proair Hfa] 1 - 2 puff INH ASDIRECTED PRN 08/03/19 [History] Past Medical History - Past Health History Medical/Surgical History: Denies Medical/Surgical History HEENT History: Reports: Other (See Below) Other HEENT History: wears glasses Cardiovascular History: Reports: Heart Murmur, Other (See Below) Other Cardiovascular History: states heart murmur Respiratory History: Reports: Asthma Gastrointestinal History: Reports: None Genitourinary History: Reports: None 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: , Spontaneous Musculoskeletal History: Reports: None Neurological History: Reports: None Psychiatric History: Reports: Anxiety, Depression, PTSD, Suicide Attempt Endocrine/Metabolic History: Reports: None Hematologic History: Reports: None Immunologic History: Reports: Other (See Below) Other Immunologic History: states MRSA in the past, states has had negative testings x3 Oncologic (Cancer) History: Reports: None Dermatologic History: Reports: None - Infectious Disease History Infectious Disease History: Reports: Chicken Pox - Past Surgical History Head Surgeries/Procedures: Reports: None HEENT Surgical History: Reports: None Cardiovascular Surgical History: Reports: None Respiratory Surgical History: Reports: None GI Surgical History: Reports: None Female Surgical History: Reports: D&C Endocrine Surgical History: Reports: None Neurological Surgical History: Reports: None Musculoskeletal Surgical History: Reports: None Oncologic Surgical History: Reports: None Dermatological Surgical History: Reports: None Social & Family History - Family History Family Medical History: Noncontributory - Tobacco Use Smoking Status *Q: Current Every Day Smoker Years of Tobacco use: 8 Packs/Tins Daily: 2 - Caffeine Use Caffeine Use: Reports: Coffee, Energy Drinks, Soda, Tea - Recreational Drug Use Recreational Drug Use: Yes Recreational Drug Type: Reports: Marijuana/Hashish Recreational Drug Use Frequency: Rarely ED ROS GENERAL - Review of Systems Review Of Systems: Comprehensive ROS is negative, except as noted in HPI. ED EXAM, GENERAL - Physical Exam Exam: See Below Exam Limited By: No Limitations General Appearance: Alert, No Apparent Distress Ears: Normal External Exam Nose: Normal Inspection Throat/Mouth: Normal Inspection Head: Atraumatic, Normocephalic Neck: Normal Inspection Respiratory/Chest: No Respiratory Distress, Lungs Clear, Normal Breath Sounds Cardiovascular: Normal Peripheral Pulses, Regular Rate, Rhythm, No Edema, No Murmur GI/Abdominal: Soft, Non-Tender, No Distention Extremities: Normal Inspection Neurological: Alert, Oriented, Normal Cognition Psychiatric: Normal Affect, Normal Mood Skin Exam: Warm, Dry, Intact, Normal Color, No Rash Lymphatic: No Adenopathy Course - Vital Signs Last Recorded V/S: Last Vital Signs Temp 36.1 C 01/05/20 16:28 Pulse Resp 18 01/05/20 16:28 BP 153/94 H 01/05/20 16:28 Pulse Ox - Orders/Labs/Meds Orders: Active Orders 24 hr Category Date Time Status EKG 12 Lead [EKG Documentation Completion] [RC] STAT Care 01/05/20 16:25 Active Labs: Laboratory Tests 01/05/20 01/05/20 01/05/20 Range/Units 16:37 16:37 17:13 WBC 8.64 (4.0-11.0) K/uL RBC 5.11 (4.30-5.90) M/uL Hgb 14.1 (12.0-16.0) g/dL Hct 42.4 (36.0-46.0) % MCV 83.0 (80.0-98.0) fL MCH 27.6 (27.0-32.0) pg MCHC 33.3 (31.0-37.0) g/dL RDW Std Deviation 37.8 (28.0-62.0) fl RDW Coeff of [place] 13 (11.0-15.0) % Plt Count 306 (150-400) K/uL MPV 9.30 (7.40-12.00) fL Neut % (Auto) 60.2 (48.0-80.0) % Lymph % (Auto) 31.3 (16.0-40.0) % [place] % (Auto) 6.0 (0.0-15.0) % Eos % (Auto) 2.3 (0.0-7.0) % Baso % (Auto) 0.2 (0.0-1.5) % Neut # (Auto) 5.2 (1.4-5.7) K/uL Lymph # (Auto) 2.7 H (0.6-2.4) K/uL [place] # (Auto) 0.5 (0.0-0.8) K/uL Eos # (Auto) 0.2 (0.0-0.7) K/uL Baso # (Auto) 0.0 (0.0-0.1) K/uL Nucleated RBC % 0.0 /100WBC Nucleated RBCs # 0 K/uL Sodium (136-145) mmol/L Potassium (3.5-5.1) mmol/L Chloride (98-107) mmol/L Carbon Dioxide (21.0-32.0) mmol/L BUN (7.0-18.0) mg/dL Creatinine (0.6-1.0) mg/dL Est Cr Clr Drug Dosing mL/min Estimated GFR (MDRD) ml/min Glucose (74-106) mg/dL Calcium (8.5-10.1) mg/dL Total Bilirubin (0.2-1.0) mg/dL AST (15-37) IU/L ALT (14-63) IU/L Alkaline Phosphatase (46-116) U/L Total Protein (6.4-8.2) g/dL Albumin (3.4-5.0) g/dL Globulin (2.6-4.0) g/dL Albumin/Globulin Ratio (0.9-1.6) Amylase (25-115) U/L Lipase (73-393) U/L Urine Color YELLOW Urine Appearance SLT CLOUDY Urine pH 5.5 (5.0-8.0) Ur Specific [place] 1.020 (1.001-1.035) Urine Protein NEGATIVE (NEGATIVE) mg/dL Urine Glucose (UA) NEGATIVE (NEGATIVE) mg/dL Urine Ketones NEGATIVE (NEGATIVE) mg/dL Urine Occult Blood NEGATIVE (NEGATIVE) Urine Nitrite NEGATIVE (NEGATIVE) Urine Bilirubin NEGATIVE (NEGATIVE) Urine Urobilinogen 0.2 (<2.0) EU/dL Ur Leukocyte Esterase SMALL H (NEGATIVE) Urine RBC 0-2 (0-2/HPF) Urine WBC 1-3 (0-5/HPF) Ur Epithelial Cells MANY (NONE-FEW) Urine Bacteria 1+ H (NEGATIVE) Urine HCG, Qual NEGATIVE (NEGATIVE) 01/05/20 Range/Units 17:13 WBC (4.0-11.0) K/uL RBC (4.30-5.90) M/uL Hgb (12.0-16.0) g/dL Hct (36.0-46.0) % MCV (80.0-98.0) fL MCH (27.0-32.0) pg MCHC (31.0-37.0) g/dL RDW Std Deviation (28.0-62.0) fl RDW Coeff of [place] (11.0-15.0) % Plt Count (150-400) K/uL MPV (7.40-12.00) fL Neut % (Auto) (48.0-80.0) % Lymph % (Auto) (16.0-40.0) % [place] % (Auto) (0.0-15.0) % Eos % (Auto) (0.0-7.0) % Baso % (Auto) (0.0-1.5) % Neut # (Auto) (1.4-5.7) K/uL Lymph # (Auto) (0.6-2.4) K/uL [place] # (Auto) (0.0-0.8) K/uL Eos # (Auto) (0.0-0.7) K/uL Baso # (Auto) (0.0-0.1) K/uL Nucleated RBC % /100WBC Nucleated RBCs # K/uL Sodium 138 (136-145) mmol/L Potassium 3.5 (3.5-5.1) mmol/L Chloride 102 (98-107) mmol/L Carbon Dioxide 24.3 (21.0-32.0) mmol/L BUN 7 (7.0-18.0) mg/dL Creatinine 0.8 (0.6-1.0) mg/dL Est Cr Clr Drug Dosing 76.54 mL/min Estimated GFR (MDRD) > 60.0 ml/min Glucose 97 (74-106) mg/dL Calcium 8.9 (8.5-10.1) mg/dL Total Bilirubin 1.1 H (0.2-1.0) mg/dL AST 10 L (15-37) IU/L ALT 18 (14-63) IU/L Alkaline Phosphatase 79 (46-116) U/L Total Protein 7.8 (6.4-8.2) g/dL Albumin 4.5 (3.4-5.0) g/dL Globulin 3.3 (2.6-4.0) g/dL Albumin/Globulin Ratio 1.4 (0.9-1.6) Amylase 79 (25-115) U/L Lipase 299 (73-393) U/L Urine Color Urine Appearance Urine pH (5.0-8.0) Ur Specific [place] (1.001-1.035) Urine Protein (NEGATIVE) mg/dL Urine Glucose (UA) (NEGATIVE) mg/dL Urine Ketones (NEGATIVE) mg/dL Urine Occult Blood (NEGATIVE) Urine Nitrite (NEGATIVE) Urine Bilirubin (NEGATIVE) Urine Urobilinogen (<2.0) EU/dL Ur Leukocyte Esterase (NEGATIVE) Urine RBC (0-2/HPF) Urine WBC (0-5/HPF) Ur Epithelial Cells (NONE-FEW) Urine Bacteria (NEGATIVE) Urine HCG, Qual (NEGATIVE) - Re-Assessments/Exams Free Text/Narrative Re-Assessment/Exam: 01/05/20 18:25 Denies acute pain, playing and talking on her phone in no acute distress the entire visit. Departure - Departure Time of Disposition: 18:23 Disposition: Home, Self-Care 01 Condition: Good Clinical Impression: Left upper quadrant abdominal pain - Discharge Information Referrals: Katie Bynum NP [Primary Care Provider] - Forms: ED Department Discharge Additional Instructions: 1. It is uncertain what caused your abdominal pain today. Your lab work and CT scan shows no acute problems. You are drinking fluids, you are not . 2. Follow up with your primary provider. Sepsis Event Note (ED) - Evaluation Sepsis Screening Result: No Definite Risk - Focused Exam Vital Signs: Vital Signs Temp Resp BP 01/05/20 16:28 36.1 C 18 153/94 H
[2020-01-05 17:48] LABS: BLOOD UREA NITROGEN,BUN 7 mg/dL (7.0-18.0); CARBON DIOXIDE,CO2 24.3 mmol/L (21.0-32.0); CHLORIDE,CL 102 mmol/L (98-107); GLUCOSE RANDOM 97 mg/dL (74-106); LIPASE 299 U/L (73-393); POTASSIUM,K 3.5 mmol/L (3.5-5.1); SODIUM,NA 138 mmol/L (136-145)
--- NOTE | 2020-01-05 18:15 | CT ---
CT abdomen and pelvis Technique: Multiple axial sections were obtained from above the dome of the diaphragm inferiorly through the pubic symphysis. Intravenous and oral contrast was not utilized. Comparison: No prior abdominal imaging is available. Findings: Visualized lung bases show nothing acute. Liver contains no focal parenchymal abnormality. Spleen shows no focal abnormality. Gallbladder contains no calcified gallstones. Adrenal glands show no nodule. Kidneys show no abnormal calcifications. No hydronephrosis is seen. Pancreas not optimally seen due to unopacified bowel. Aorta shows no aneurysm. No retroperitoneal adenopathy or mesenteric abnormalities are seen. No pelvic mass or adenopathy is seen. Appendix is seen which is normal in size. No free fluid or inflammatory change is appreciated. Bone window settings were reviewed which show no acute bony abnormality. Impression: 1. Nothing acute is appreciated on noncontrast CT study of the abdomen and pelvis. Diagnostic code #1 This report was dictated in MDT
[2020-01-05 19:10] VITALS: BP 145/81; PULSE 74
== END 2020-01-05 18:45 | disposition home or self-care (01) ==
LOC: MW.ED 16:19
DX: R10.12 Left upper quadrant pain (principal); J45.909 Unspecified asthma, uncomplicated; F17.210 Nicotine dependence, cigarettes, uncomplicated
CPT/HCPCS: 36415; 74176; 74176-26; 80053; 81001; 81025; 82150; 83690; 85025; 93005; 99282; 99284-25

== ENCOUNTER 2020-08-12 18:10 | Emergency (ER) | payer SELFPAY ==
[2020-08-12 19:53] LABS: BLOOD UREA NITROGEN,BUN 11 mg/dL (7.0-18.0); CARBON DIOXIDE,CO2 22.9 mmol/L (21.0-32.0); CHLORIDE,CL 104 mmol/L (98-107); GLUCOSE RANDOM 105 mg/dL (74-106); POTASSIUM,K 3.3 mmol/L (3.5-5.1); SODIUM,NA 139 mmol/L (136-145)
--- NOTE | 2020-08-12 21:29 | EDM.PDOC ---
ED HPI GENERAL MEDICAL PROBLEM - General Chief Complaint: Abdominal Pain Stated Complaint: ABDOMINAL PAIN Time Seen by Provider: 08/12/20 18:12 Source of Information: Reports: Patient History Limitations: Reports: No Limitations - History of Present Illness INITIAL COMMENTS - FREE TEXT/NARRATIVE: HISTORY AND PHYSICAL: History of present illness: Patient is a 25-year-old female who presents to the ED today with concern of epigastric/right upper quadrant abdominal pain that started 1 hour prior to the emergency room. Patient states she is approximately 5 weeks in gestation and follows along with Dr. Mukherjee in the clinic. Patient states she had her first ultrasound on Saturday, 3 days ago and states that she has had issues with infertility so she is following closely with ultrasound. Patient states she has had 2 prior miscarriages, one with a D&C in 1 normal via . Patient reports nausea and vomiting but states that she has had issues with this since she found out she was . She denies any vaginal bleeding or change in vaginal discharge. Denies any other symptoms or concerns. Patient denies fever, chills, chest pain, shortness of breath, or cough. Denies headache, neck stiff ness, change in vision, syncope, or near syncope. Denies nausea, vomiting, diarrhea, constipation, or dysuria. Has not noted any blood in urine or stool. Patient has been eating and drinking appropriately. Review of systems: As per history of present illness and below otherwise all systems reviewed and negative. Past medical history: As per history of present illness and as reviewed below otherwise noncontributory. Surgical history: As per history of present illness and as reviewed below otherwise noncontributory. Social history: See social history for further information Family history: As per history of present illness and as reviewed below otherwise noncontributory. Physical exam: General: Patient is alert, oriented, and in no acute distress. Patient sitting comfortably on exam table. Initial tachycardia which resolves during my exam. Otherwise, vitally stable. HEENT: Atraumatic, normocephalic, pupils equal and reactive bilaterally, negat katrin for conjunctival pallor or scleral icterus, mucous membranes moist, TMs normal bilaterally, throat clear, neck supple, nontender, trachea midline. No drooling or trismus noted. No meningeal signs. No hot potato voice noted. Lungs: Clear to auscultation, breath sounds equal bilaterally, chest nontender. Heart: S1S2, regular rate and rhythm without overt murmur Abdomen: Soft, nondistended, moderate epigastric tenderness without guarding, negative rebound, negative hendricks sign. Negative for masses or hepatosplenomegaly. Negative for costovertebral tenderness. Pelvis: Stable nontender. Genitourinary: Deferred. Rectal: Deferred. Skin: Intact, warm, dry. No lesions or rashes noted. Extremities: Atraumatic, negative for cords or calf pain. Neurovascular unremarkable. Neuro: Awake, alert, oriented. Cranial nerves II through XII unremarkable. Cerebellum unremarkable. Motor and sensory unremarkable throughout. Exam nonfocal. Notes: Patient just had a transvaginal ultrasound done on 08/09/2020 at our facility, 3 days ago, which shows an intrauterine gestational sac with a mean diameter of 6 mm which contains a possible yolk sac. No embryo seen, however, it may be too early to detect. The is uncertain viability based on the single ultrasound. Consider further evaluation with follow-up ultrasound in 11 days or more. Correlates clinically with 5 weeks and 2 days. Upon reevaluation of patient, she expresses improvement of symptoms today in the ED. Strict return precautions thoroughly discussed with patient. Discussed importance for follow-up with primary care provider/HOST/HOSTESS provider. Voices understanding and is agreeable to plan of care. Denies any further questions or concerns at this time. Diagnostics: CBC, CMP, UA, uhcg, hcg quant, Rh/Blood type, RUQ US, lipase Therapeutics: None (Tylenol offered but patient declines) Prescription: Amoxicillin Impression: Epigastric abdominal pain, unspecified Asymptomatic bacteriuria Intrauterine , 5 weeks Plan: 1. Take medication as prescribed. You can also take Tylenol as directed for pain and discomfort as this is safe to use in . 2. Follow-up with your primary care provider/HOST/HOSTESS provider as discussed. Return to the ED as needed and as discussed. Definitive disposition and diagnosis as appropriate pending reevaluation and review of above. middle abdomen Pain Score (Numeric/FACES): 8 - Related Data Allergies Allergy/AdvReac Type Severity Reaction Status Date / Time No Known Allergies Allergy Verified 08/12/20 18:46 Home Meds: Home Meds Albuterol Sulfate 1 unit NEB ASDIRECTED PRN 08/03/19 [History] Albuterol Sulfate [Proair Hfa] 1 - 2 puff INH ASDIRECTED PRN 08/03/19 [History] Amoxicillin 500 mg PO Q8H 5 Days #15 tablet 08/12/20 [Rx] Past Medical History - Past Health History Medical/Surgical History: Denies Medical/Surgical History HEENT History: Reports: Other (See Below) Other HEENT History: wears glasses Cardiovascular History: Reports: Heart Murmur, Other (See Below) Other Cardiovascular History: states heart murmur Respiratory History: Reports: Asthma Gastrointestinal History: Reports: None Genitourinary History: Reports: None 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: , Spontaneous Musculoskeletal History: Reports: None Neurological History: Reports: None Psychiatric History: Reports: Anxiety, Depression, PTSD, Suicide Attempt Endocrine/Metabolic History: Reports: None Hematologic History: Reports: None Immunologic History: Reports: Other (See Below) Other Immunologic History: states MRSA in the past, states has had negative testings x3 Oncologic (Cancer) History: Reports: None Dermatologic History: Reports: None - Infectious Disease History Infectious Disease History: Reports: Chicken Pox - Past Surgical History Head Surgeries/Procedures: Reports: None HEENT Surgical History: Reports: None Cardiovascular Surgical History: Reports: None Respiratory Surgical History: Reports: None GI Surgical History: Reports: None Female Surgical History: Reports: D&C Endocrine Surgical History: Reports: None Neurological Surgical History: Reports: None Musculoskeletal Surgical History: Reports: None Oncologic Surgical History: Reports: None Dermatological Surgical History: Reports: None Social & Family History - Family History Family Medical History: No Pertinent Family History - Caffeine Use Caffeine Use: Reports: None - Recreational Drug Use Recreational Drug Use: Yes Recreational Drug Type: Reports: Marijuana/Hashish Other Recreational Drug Type: states she gave up marijauna when she learned she was ED ROS GENERAL - Review of Systems Review Of Systems: Comprehensive ROS is negative, except as noted in HPI. ED EXAM, GENERAL - Physical Exam Exam: See Below (see dictation) Course - Vital Signs Last Recorded V/S: Last Vital Signs Temp 98.4 F 08/12/20 18:41 Pulse 90 08/12/20 19:23 Resp 18 08/12/20 19:23 BP 131/91 H 08/12/20 19:23 Pulse Ox 97 08/12/20 19:23 - Orders/Labs/Meds Orders: Active Orders 24 hr Category Date Time Status CULTURE URINE [RM] Stat Lab 08/12/20 19:21 Received Labs: Laboratory Tests 08/12/20 08/12/20 08/12/20 Range/Units 19:00 19:00 19:00 WBC 10.59 (4.0-11.0) K/uL RBC 4.95 (4.30-5.90) M/uL Hgb 14.2 (12.0-16.0) g/dL Hct 40.7 (36.0-46.0) % MCV 82.2 (80.0-98.0) fL MCH 28.7 (27.0-32.0) pg MCHC 34.9 (31.0-37.0) g/dL RDW Std Deviation 38.7 (28.0-62.0) fl RDW Coeff of [place] 13 (11.0-15.0) % Plt Count 327 (150-400) K/uL MPV 9.50 (7.40-12.00) fL Neut % (Auto) 55.9 (48.0-80.0) % Lymph % (Auto) 33.6 (16.0-40.0) % [place] % (Auto) 7.7 (0.0-15.0) % Eos % (Auto) 2.5 (0.0-7.0) % Baso % (Auto) 0.3 (0.0-1.5) % Neut # (Auto) 5.9 H (1.4-5.7) K/uL Lymph # (Auto) 3.6 H (0.6-2.4) K/uL [place] # (Auto) 0.8 (0.0-0.8) K/uL Eos # (Auto) 0.3 (0.0-0.7) K/uL Baso # (Auto) 0.0 (0.0-0.1) K/uL Nucleated RBC % 0.0 /100WBC Nucleated RBCs # 0 K/uL Sodium 139 (136-145) mmol/L Potassium 3.3 L (3.5-5.1) mmol/L Chloride 104 (98-107) mmol/L Carbon Dioxide 22.9 (21.0-32.0) mmol/L BUN 11 (7.0-18.0) mg/dL Creatinine 0.7 (0.6-1.0) mg/dL Est Cr Clr Drug Dosing 86.71 mL/min Estimated GFR (MDRD) > 60.0 ml/min Glucose 105 (74-106) mg/dL Calcium 9.9 (8.5-10.1) mg/dL Total Bilirubin 1.4 H (0.2-1.0) mg/dL AST 8 L (15-37) IU/L ALT 19 (14-63) IU/L Alkaline Phosphatase 58 (46-116) U/L Total Protein 8.1 (6.4-8.2) g/dL Albumin 4.6 (3.4-5.0) g/dL Globulin 3.5 (2.6-4.0) g/dL Albumin/Globulin Ratio 1.3 (0.9-1.6) Lipase (73-393) U/L HCG, Quant 53127.0 mIU/mL Urine Color Urine Appearance Urine pH (5.0-8.0) Ur Specific [place] (1.001-1.035) Urine Protein (NEGATIVE) mg/dL Urine Glucose (UA) (NEGATIVE) mg/dL Urine Ketones (NEGATIVE) mg/dL Urine Occult Blood (NEGATIVE) Urine Nitrite (NEGATIVE) Urine Bilirubin (NEGATIVE) Urine Urobilinogen (<2.0) EU/dL Ur Leukocyte Esterase (NEGATIVE) Urine RBC (0-2/HPF) Urine WBC (0-5/HPF) Ur Epithelial Cells (NONE-FEW) Urine Bacteria (NEGATIVE) Urine HCG, Qual (NEGATIVE) Blood Type A POSITIVE 08/12/20 08/12/20 08/12/20 Range/Units 19:00 19:21 19:21 WBC (4.0-11.0) K/uL RBC (4.30-5.90) M/uL Hgb (12.0-16.0) g/dL Hct (36.0-46.0) % MCV (80.0-98.0) fL MCH (27.0-32.0) pg MCHC (31.0-37.0) g/dL RDW Std Deviation (28.0-62.0) fl RDW Coeff of [place] (11.0-15.0) % Plt Count (150-400) K/uL MPV (7.40-12.00) fL Neut % (Auto) (48.0-80.0) % Lymph % (Auto) (16.0-40.0) % [place] % (Auto) (0.0-15.0) % Eos % (Auto) (0.0-7.0) % Baso % (Auto) (0.0-1.5) % Neut # (Auto) (1.4-5.7) K/uL Lymph # (Auto) (0.6-2.4) K/uL [place] # (Auto) (0.0-0.8) K/uL Eos # (Auto) (0.0-0.7) K/uL Baso # (Auto) (0.0-0.1) K/uL Nucleated RBC % /100WBC Nucleated RBCs # K/uL Sodium (136-145) mmol/L Potassium (3.5-5.1) mmol/L Chloride (98-107) mmol/L Carbon Dioxide (21.0-32.0) mmol/L BUN (7.0-18.0) mg/dL Creatinine (0.6-1.0) mg/dL Est Cr Clr Drug Dosing mL/min Estimated GFR (MDRD) ml/min Glucose (74-106) mg/dL Calcium (8.5-10.1) mg/dL Total Bilirubin (0.2-1.0) mg/dL AST (15-37) IU/L ALT (14-63) IU/L Alkaline Phosphatase (46-116) U/L Total Protein (6.4-8.2) g/dL Albumin (3.4-5.0) g/dL Globulin (2.6-4.0) g/dL Albumin/Globulin Ratio (0.9-1.6) Lipase 84 (73-393) U/L HCG, Quant mIU/mL Urine Color YELLOW Urine Appearance SLT CLOUDY Urine pH 6.0 (5.0-8.0) Ur Specific [place] 1.010 (1.001-1.035) Urine Protein NEGATIVE (NEGATIVE) mg/dL Urine Glucose (UA) NEGATIVE (NEGATIVE) mg/dL Urine Ketones TRACE H (NEGATIVE) mg/dL Urine Occult Blood TRACE-INTACT H (NEGATIVE) Urine Nitrite NEGATIVE (NEGATIVE) Urine Bilirubin NEGATIVE (NEGATIVE) Urine Urobilinogen 0.2 (<2.0) EU/dL Ur Leukocyte Esterase SMALL H (NEGATIVE) Urine RBC 0-2 (0-2/HPF) Urine WBC 0-4 (0-5/HPF) Ur Epithelial Cells FEW (NONE-FEW) Urine Bacteria 1+ H (NEGATIVE) Urine HCG, Qual POSITIVE (NEGATIVE) Blood Type Departure - Departure Time of Disposition: 22:03 Disposition: Home, Self-Care 01 Clinical Impression: Epigastric abdominal pain, Intrauterine , Asymptomatic bacteriuria - Discharge Information Prescriptions: Amoxicillin 500 mg PO Q8H 5 Days #15 tablet Instructions: Abdominal Pain, Adult, [id number] Referrals: Isabelle Franklin MD [Primary Care Provider] - Forms: ED Department Discharge Additional Instructions: The following information is given to patients seen in the emergency department who are being discharged to home. This information is to outline your options for follow-up care. We provide all patients seen in our emergency department with a follow-up referral. The need for follow-up, as well as the timing and circumstances, are variable depending upon the specifics of your emergency department visit. If you don't have a primary care physician on staff, we will provide you with a referral. We always advise you to contact your personal physician following an emergency department visit to inform them of the circumstance of the visit and for follow-up with them and/or the need for any referrals to a consulting specialist. The emergency department will also refer you to a specialist when appropriate. This referral assures that you have the opportunity for follow-up care with a specialist. All of these measure are taken in an effort to provide you with o ptimal care, which includes your follow-up. Under all circumstances we always encourage you to contact your private physician who remains a resource for coordinating your care. When calling for follow-up care, please make the office aware that this follow-up is from your recent emergency room visit. If for any reason you are refused follow-up, please contact the [facility] Emergency Department at and asked to speak to the emergency department charge nurse. [facility] [address] [place] [id number] [facility] [address] [place] [address] [facility] [address] [place] [address] 1. Take medication as prescribed. You can also take Tylenol as directed for pain and discomfort as this is safe to use in . 2. Follow-up with your primary care provider/HOST/HOSTESS provider as discussed. Return to the ED as needed and as discussed. Sepsis Event Note (ED) - Evaluation Sepsis Screening Result: No Definite Risk - Focused Exam Vital Signs: Vital Signs Temp Pulse Resp BP Pulse Ox 08/12/20 19:23 90 18 131/91 H 97 08/12/20 18:41 98.4 F 118 H 18 136/95 H 98 - My Orders Last 24 Hours: My Active Orders 08/12/20 19:21 CULTURE URINE [RM] Stat - Assessment/Plan Last 24 Hours: My Active Orders 08/12/20 19:21 CULTURE URINE [RM] Stat
--- NOTE | 2020-08-12 21:30 | US ---
INDICATION: Right upper quadrant pain. COMPARISON: Ultrasound of the abdomen from 08/09/19 21. TECHNIQUE: Ultrasound examination of the right upper quadrant was performed. FINDINGS: There is normal appearance of the gallbladder, with no sign of cholelithiasis or acute cholecystitis. There is no sign of gallbladder wall thickening or pericholecystic fluid. A sonographic Veliz sign is not present, with no pain over the gallbladder during ultrasound examination. The common bile duct is normal in caliber at 2 mm. The pancreatic head and body were examined, and these are normal in appearance. The abdominal aorta and visualized portions of the inferior vena cava are normal in appearance. The liver shows no sign of mass or contour abnormality, and there is no sign of ascites. The right kidney is unremarkable. There has been no interval change. IMPRESSION: Normal right upper quadrant ultrasound. No interval change. Dictated by Watson Almonte MD @ Aug 12 2020 9:27PM Signed by Dr. Watson Almonte @ Aug 12 2020 9:29PM
[2020-08-12 22:03] VITALS: BP 125/86; PULSE 95
== END 2020-08-12 22:01 | disposition home or self-care (01) ==
LOC: MW.ED 18:10
DX: O99.891 Other specified diseases and conditions complicating pregnancy (principal); R82.71 Bacteriuria; R10.13 Epigastric pain; O99.511 Diseases of the respiratory system complicating pregnancy, first trimester; J45.909 Unspecified asthma, uncomplicated; Z3A.01 Less than 8 weeks gestation of pregnancy
CPT/HCPCS: 36415; 76705; 76705-26; 80053; 81001; 81025; 83690; 84702; 85025; 86900; 86901; 87086; 99283; 99284-25

== ENCOUNTER 2023-07-25 00:18 | Inpatient (IN) | payer SELFPAY ==
[2023-07-25] MEDS ORDERED: Sodium Chloride 0.9% 2.5 ML Syringe FLUSH PRN (00:58)
[2023-07-25] MEDS ORDERED: Misoprostol 200 MCG Tab PO PRN (00:58)
[2023-07-25] MEDS ORDERED: Lidocaine 1% 50 ML MDV INJECT PRN (00:58)
[2023-07-25] MEDS ORDERED: Butorphanol 1 MG/ML SDV IVPUSH PRN (00:58)
[2023-07-25] MEDS ORDERED: Carboprost Tromethamine 250 MCG/1 mL Vial IM PRN (00:58)
[2023-07-25] MEDS ORDERED: Terbutaline 1 MG/ML SDV SUBCUT PRN (00:58)
[2023-07-25] MEDS ORDERED: Sodium Chloride 0.9% 10 ML Syringe FLUSH PRN (00:58)
[2023-07-25] MEDS ORDERED: Sodium Chloride 0.9% 20 ML SDV IV PRN (00:58)
[2023-07-25] MEDS ORDERED: Tranexamic Acid IN NACL,ISO-OS 1,000 MG in Premix Bag 1 BAG IV PRN ×2 (00:58)
[2023-07-25] MEDS ORDERED: Water For Irrigation,Sterile 1,000 ML Container IRR PRN (00:58)
[2023-07-25] MEDS ORDERED: Methylergonovine 0.2 MG/1 ML Amp IM PRN (00:58)
[2023-07-25] MEDS ORDERED: Oxytocin/0.9 % Sodium Chloride 30 UNIT/500 ML BAG IV SCH ×2 (01:00)
[2023-07-25] MEDS: Lactated Ringers 1,000 ML IV SCH ×2 (01:30→12:45)
[2023-07-25 01:52] LABS: HEMATOCRIT 30.3 % (37.0-47.0); HEMOGLOBIN 10.2 g/dL (12.0-16.0); MEAN CORPUSCULAR HGB CONC 33.7 g/dL (32.0-36.0); MEAN CORPUSCULAR VOLUME 83.2 fL (83.0-99.0); MEAN PLATELET VOLUME 9.9 fL (9.4-12.3); PLATELET COUNT,PLT 251 K/uL (150-400); RED BLOOD CELL COUNT 3.64 M/uL (4.10-5.30); WHITE BLOOD CELL COUNT,WBC 10.01 K/uL (3.9-11.3)
[2023-07-25] MEDS: Misoprostol 25 MCG (1/4 of 100 MCG) Tab VAG PRN ×4 (01:56→10:36)
[2023-07-25] MEDS ORDERED: Misoprostol 25 MCG (1/4 of 100 MCG) Tab PO PRN (02:00)
[2023-07-25] MEDS ORDERED: Misoprostol 25 MCG (1/4 of 100 MCG) Tab PO ONE (10:30)
[2023-07-25 11:00] LABS: APPEARANCE,URINE CLEAR; BILIRUBIN,URINE NEGATIVE (NEGATIVE); COLOR,URINE YELLOW; GLUCOSE,URINE NEGATIVE (NEGATIVE); KETONES,URINE NEGATIVE (NEGATIVE); LEUKOCYTE ESTERASE,URINE TRACE (NEGATIVE); NITRITE,URINE NEGATIVE (NEGATIVE); OCCULT BLOOD,URINE TRACE-INTACT (NEGATIVE); PROTEIN,URINE NEGATIVE (NEGATIVE); UROBILINOGEN,URINE 0.2 EU/dL (<2.0)
[2023-07-25 11:09] LABS: AMPHETAMINES SCREEN, URINE NEGATIVE (CUTOFF=500); BARBITURATE SCREEN,URINE NEGATIVE (CUTOFF=200); BENZODIAZEPINES SCREEN,URINE NEGATIVE (CUTOFF=150); BUPRENORPHINE SCREEN,URINE NEGATIVE (CUTOFF=10); METHADONE SCREEN, URINE NEGATIVE (CUTOFF=200); METHAMPHETAMINES SCREEN, URINE NEGATIVE (CUTOFF=500); OXYCODONE SCREEN,URINE NEGATIVE (CUT0FF=100); PCP SCREEN,URINE NEGATIVE (CUTOFF=25); THC SCREEN,URINE 20 NG/ML NEGATIVE (CUTOFF=50)
[2023-07-25] MEDS ORDERED: Ropivacaine HCl/PF 200 ML ONE (13:07)
[2023-07-25] MEDS ORDERED: Bupivacaine 0.5% 10 ML SDV ONE (13:07)
[2023-07-25] MEDS ORDERED: Phenylephrine HCl 0.5 MG/5 ML AMP ONE (13:07)
[2023-07-25] MEDS ORDERED: ePHEDrine 50 MG/ML SDV IVPUSH PRN ×2 (13:29)
[2023-07-25] MEDS ORDERED: Phenylephrine HCl 0.5 MG/5 ML AMP IVPUSH PRN (13:29)
[2023-07-25] MEDS ORDERED: Ropivacaine HCl/PF 400 MG in Premix Bag 1 BAG EPIDUR SCH (13:30)
[2023-07-25] MEDS ORDERED: Benzocaine/Menthol 20%-0.5% Spray 78 GM Cannister TOP PRN (19:05)
[2023-07-25] MEDS ORDERED: Ibuprofen 800 MG Tab PO PRN (19:05)
[2023-07-25] MEDS ORDERED: Lanolin 100% Cream 7 GM Tube TOP PRN (19:05)
[2023-07-25] MEDS ORDERED: Witch Hazel Medicated Pads 40/Jar TOP PRN (19:05)
[2023-07-25] MEDS ORDERED: Acetaminophen 500 MG Tab PO PRN (19:05)
[2023-07-25] MEDS ORDERED: Docusate Sodium 100 MG Cap PO PRN (19:05)
[2023-07-26 00:38] LABS: PH,UMBILICAL ARTERIAL 7.211 (7.18-7.38); PH,UMBILICAL VENOUS 7.244 (7.25-7.45)
[2023-07-26 06:10] LABS: HEMATOCRIT 32.2 % (37.0-47.0); HEMOGLOBIN 10.8 g/dL (12.0-16.0)
[2023-07-26 08:12] LABS: APPEARANCE,URINE SLT CLOUDY; BILIRUBIN,URINE NEGATIVE (NEGATIVE); COLOR,URINE YELLOW; GLUCOSE,URINE NEGATIVE (NEGATIVE); KETONES,URINE NEGATIVE (NEGATIVE); LEUKOCYTE ESTERASE,URINE SMALL (NEGATIVE); NITRITE,URINE NEGATIVE (NEGATIVE); OCCULT BLOOD,URINE LARGE (NEGATIVE); PROTEIN,URINE NEGATIVE (NEGATIVE); UROBILINOGEN,URINE 0.2 EU/dL (<2.0)
[2023-07-26 15:21] VITALS: BP 124/75; PULSE 75
== END 2023-07-26 17:25 | disposition home or self-care (01) | DRG 807 ==
LOC: MW.OBCHECK 00:18 → MW.OB 00:19 → MW.OBCHECK 00:58 → MW.OB 00:58 → OBSVTOIN 19:00
PROVIDERS: ADMIT Obstetrics & Gynecology Obstetrics; ATTEND Obstetrics & Gynecology Obstetrics
PROC: 10E0XZZ Delivery of Products of Conception, External Approach (ICD-10-PCS; principal; 2023-07-25)
PROC: 3E0R3BZ Introduction of Anesthetic Agent into Spinal Canal, Percutaneous Approach (ICD-10-PCS; 2023-07-25)
PROC: 00HU33Z Insertion of Infusion Device into Spinal Canal, Percutaneous Approach (ICD-10-PCS; 2023-07-25)
PROC: 3E0P7VZ Introduction of Hormone into Female Reproductive, Via Natural or Artificial Opening (ICD-10-PCS; 2023-07-25)
PROC: 3E033VJ Introduction of Other Hormone into Peripheral Vein, Percutaneous Approach (ICD-10-PCS; 2023-07-25)
DX: O14.94 Unspecified pre-eclampsia, complicating childbirth (principal); Z37.0 Single live birth; O99.52 Diseases of the respiratory system complicating childbirth; J45.909 Unspecified asthma, uncomplicated; O99.02 Anemia complicating childbirth; D64.9 Anemia, unspecified; O69.81X0 Labor and delivery complicated by cord around neck, without compression, not applicable or unspecified; Z3A.38 38 weeks gestation of pregnancy
CPT/HCPCS: 36415; 51702; 59025; 59409; 80305-QW; 81003; 82803; 85014; 85018; 85027; 86592; 86850; 86900; 86901; A9270-GY; J0665; J2371; J2590; J2795; J7120

== ENCOUNTER 2023-11-01 09:55 | Emergency (ER) | payer OTHER ==
[2023-11-01 10:18] VITALS: BP 147/74; PULSE 66
[2023-11-01] MEDS: Ibuprofen 600 MG Tab PO ONE (10:45)
== END 2023-11-01 11:31 | disposition home or self-care (01) ==
LOC: MW.ED 09:55
DX: S83.004A Unspecified dislocation of right patella, initial encounter (principal); Z88.5 Allergy status to narcotic agent; X50.0XXA Overexertion from strenuous movement or load, initial encounter; Y93.41 Activity, dancing
CPT/HCPCS: 73562; 99283; A9270